=== PATIENT | male | born 1960 | race Caucasian/White ===

== ENCOUNTER 2025-11-13 17:54 | Inpatient (IN) | payer MEDICARE, SELFPAY ==
--- NOTE | 2025-11-13 19:13 | ED.GENADULT ---
HPI - General Adult General Chief complaint: Shortness of Breath/Dyspnea Stated complaint: SOB, Anxiety Time Seen by Provider: 11/13/25 17:58 History of Present Illness HPI narrative: 65-year-old gentleman arrives the EMS with cough and increasing dyspnea. He notes that approximately 3 weeks ago he had rather classic symptoms of an upper respiratory infection with nonproductive cough. Seemingly almost entirely resolved and then worsening over the last week. He notes exertional dyspnea, orthopnea no lower extremity edema. Not complaining of fevers but is feeling significantly worse and he did with the initial viral presentation. No abdominal pain, headache, nausea or vomiting. He does not have a history of cardiac disease does not use inhalers at baseline Related Data Allergies Allergy/AdvReac Type Severity Reaction Status Date / Time ashwagandha (From Cortisolv) Allergy Mild Verified 11/13/25 19:37 banaba leaf extract (From Allergy Mild Verified 11/13/25 19:37 Cortisolv) magnolia bark extract (From Allergy Mild Verified 11/13/25 19:37 Cortisolv) josé root extract (From Allergy Mild Verified 11/13/25 19:37 Cortisolv) Penicillins Allergy Mild Verified 11/13/25 19:37 Phellodendron (From Allergy Mild Verified 11/13/25 19:37 Cortisolv) theanine (From Cortisolv) Allergy Mild Verified 11/13/25 19:37 Review of Systems Review of Systems Narrative: Pertinent positive and negative findings as per HPI Patient History Social History Smoking Status: Former smoker Exam Initial Vital Signs Initial Vital Signs: Vital Signs Temperature 98.3 F 11/13/25 19:36 Pulse Rate 113 H 11/13/25 19:36 Respiratory Rate 16 11/13/25 19:36 Blood Pressure 143/96 H 11/13/25 19:36 Pulse Oximetry 98 11/13/25 19:36 Oxygen Delivery Method Room Air 11/13/25 19:36 General: Healthy appearing, somewhat anxious, able to speak in complete sentences, no respiratory distress HEENT: Moist mucous membranes, normal sclera with reactive pupils, Neck: No JVD, Respiratory: Lungs with crackles to mid lung ren, no significant wheeze no dramatic rhonchi Cardiac: Tachycardic but otherwise Regular rate and rhythm no murmurs no bruits Abdomen: Soft, nontender, no rebound or guarding, no flank pain Skin: Warm and dry, no rashes Neurologic: Grossly neurologically intact with no obvious asymmetries or abnormalities Extremities: No trauma, well perfused, no lower extremity edema Psych: Cooperative, appropriate insight and affect Course Orders Ordered: ED Orders 11/13/25 17:45 Complete Blood Count AUTO DIFF Stat Comprehensive Metabolic Panel Stat NT-proBNP (BNP-Adult 18+) Stat Prothrombin Time INR Stat Troponin I Stat 11/13/25 19:50 XR chest 1V Stat EKG-12 Lead Stat Measure peak expiratory flow STAT RT Consult Eval and Treat STAT 11/13/25 20:07 D Dimer Stat Lactate (Lactic Acid) Stat 11/13/25 22:03 CT angio chest PE protocol Stat Vital Signs Vital signs: Vital Signs - 8 hr 11/13/25 19:36 11/13/25 22:38 11/14/25 00:30 Temperature 98.3 F Pulse Rate 113 H 107 H 111 H Respiratory Rate 16 18 16 Blood Pressure 143/96 H 150/102 H 143/98 H Pulse Oximetry 98 93 98 Oxygen Delivery Method Room Air Room Air Room Air Medical Decision Making Lab Data 11/13/25 17:45 11/13/25 17:45 Labs: Lab Results 11/13/25 11/13/25 Range/Units 17:45 20:07 WBC 11.6 H (4.5-11.0) X10^3/uL RBC 5.69 (4.5-5.9) X10^6/uL Hgb 14.8 (13.5-17.5) g/dL Hct 45.9 (41-53) % MCV 80.7 (80-100) fL MCH 26.0 (26-34) PG MCHC 32.3 (30-36) % RDW 16.4 H (11.6-14.8) % Plt Count 355 (150-400) X10^3/uL Neut % (Auto) 73.6 (50-75) % Lymph % (Auto) 17.8 L (25-40) % [place] % (Auto) 6.5 (3-14) % Eos % (Auto) 1.4 L (2-4) % Baso % (Auto) 0.7 (0-2) % Neut # (Auto) 8500 H (9053-5568) /uL Lymph # (Auto) 2100 (5721-4171) /uL [place] # (Auto) 700 (0-900) /uL Eos # (Auto) 200 (0-450) /uL Baso # (Auto) 100 (0-100) /uL PT 13.3 H (9.4-12.5) SECONDS INR 1.2 (0.9-1.3) D-Dimer 2209 H (<500) ng/ml Sodium 139 (137-145) mmol/L Potassium 4.2 (3.4-5.1) mmol/L Chloride 103 (98-107) mmol/L Carbon Dioxide 21 L (22-32) mmol/L BUN 21 H (9-20) mg/dL Creatinine 1.12 (0.66-1.25) mg/dL Estimated GFR > 60 (>60) mL/min BUN/Creatinine Ratio 18.8 (6-22) Glucose 121 H (70-99) mg/dL Lactate 1.6 (0.7-2.1) mmol/L Calcium 9.1 (8.4-10.2) mg/dL Total Bilirubin 1.1 (0.2-1.3) mg/dL AST 36 (17-59) IU/L ALT 34 (<50) IU/L Alkaline Phosphatase 88 (38-126) U/L Troponin I 0.022 (0.01-0.034) ng/mL NT-Pro-B Natriuret Pep 9530 H (<125) pg/mL Total Protein 8.3 H (6.3-8.2) g/dL Albumin 4.8 (3.5-5.0) g/dL Globulin 3.5 (1.7-4.1) g/dL Albumin/Globulin Ratio 1.4 (1.0-2.8) Imaging Data CT scan - chest: Radiologist's Impression: PROCEDURE: CT ANGIO CHEST PE PROTOCOL INDICATIONS: elevated d dimer TECHNIQUE: After the administration of intravenous contrast, 2 mm thick sections acquired from the pulmonary apices to the posterior costophrenic angles. 3-dimensional maximum intensity projection (MIP) coronal and sagittal reformats were then acquired through the thorax. For radiation dose reduction, the following was used: automated exposure control, adjustment of mA and/or kV according to patient size. COMPARISON: None. FINDINGS: Image quality: Diagnostic. Pulmonary arteries: Pulmonary arteries are normal in size, and demonstrate no intraluminal filling defects to suggest central pulmonary embolism. Lower Neck: No enlarged lymph nodes. Thyroid: No thyroid nodules which require sonographic follow up, per consensus guidelines. Axillae: No enlarged lymph nodes. Chest Wall: Unremarkable. Bones: Unremarkable. Lungs and Pleura: Moderate right greater than left pleural effusions, with associated mild atelectasis. Patchy consolidation in the right lower lobe. Interlobular septal thickening and mosaic attenuation of the lungs, suggestive of interstitial pulmonary edema. Heart: Mild cardiomegaly. Coronary artery calcifications. No pericardial effusion. Thoracic Vessels: No aortic aneurysm. Mediastinum and Sendy: Multiple enlarged mediastinal and hilar lymph nodes, measuring up to 1.6 cm at the precarinal station in short axis (/). Esophagus: No wall thickening. No hiatal hernia. Upper Abdomen: Visualized upper abdomen solid organs and bowel loops appear normal. IMPRESSION: Moderate right greater than left pleural effusions, and interstitial pulmonary edema. Patchy consolidation in the right lower lobe is suggestive of superimposed infectious/inflammatory process. Enlarged mediastinal and hilar lymph nodes, likely reactive. No pulmonary embolism. Dictated by: Arleen Campo M.D. on 11/13/2025 at 23:37 MDM Narrative Medical decision making narrative: CC: Dyspnea Complicating co-morbidities: is dying from cancer and has required significant amount of care with recurrent hospitalizations and large amounts of his time and energy recently. Recent upper respiratory infection Data collected from: patient Social determinants of health that may influence the patients condition: is critically ill and he is caring for her at home Differential considered: Sequential virus, postviral pneumonia, congestive heart failure, pulmonary embolism Exam documented above, pertinent findings include: Able to speak in complete sentences, slightly tachycardic, no murmurs, crackles to mid bases without JVD or lower extremity edema Lab Test results independently reviewed as above. Pertinent findings: CBC shows mild leukocytosis 11.6 without left shift. No anemia Chemistries show proBNP elevated at 9530 Troponin is not elevated Lactic acid is not elevated D-dimer is elevated at greater than 2000 Independently reviewed EKG: Sinus tachycardia at a rate of 115, right bundle branch block. No prior EKGs available for comparison Imaging studies independently reviewed: Chest x-ray shows diffuse interstitial prominence suggestive of mild pulmonary edema and mild left basilar opacities with no obvious pleural effusions noted CT of the chest shows Moderate right greater than left pleural effusions, and interstitial pulmonary edema. Patchy consolidation in the right lower lobe is suggestive of superimposed infectious/inflammatory process. Enlarged mediastinal and hilar lymph nodes, likely reactive. No pulmonary embolism. Consultations: Dr Bruner, senior field engineer agrees with current plan and we will consult as an inpatient Treatments: 40 mg of IV Lasix Discussion: 65-year-old gentleman with upper respiratory infection approximately 3 weeks ago and now progressive exertional dyspnea and orthopnea. He is not having fevers or chills, nausea or vomiting. Workup shows new congestive heart failure based on an elevated BNP. CT scan of the chest shows no evidence of pulmonary embolism but does show interstitial edema and developing pulmonary effusions. EKG shows tachycardia without obvious ischemic changes. Troponin is not elevated today. Findings reviewed with patient along with recommendations for hospitalization to facilitate IV diuresis, cardiology consultation, echocardiogram. He is amenable to this. Discussed his care with Dr. Richey who will consult tomorrow. We will review his care with the hospitalist service for admission for new congestive heart failure. Discharge Plan Departure Patient Disposition: Admitted as Observation Clinical Impression: Acute CHF (congestive heart failure) Qualifiers: Heart failure type: unspecified Qualified Code(s): I50.9 - Heart failure, unspecified
[2025-11-13 19:36] VITALS: BP 143/96; PULSE 113; RESP 16; TEMP 36.8; O2SAT 98; BMI 29.2
--- NOTE | 2025-11-13 19:50 | EKG_ITS ---
[facility] [id number] [place] [id number] Test Date: 2025-11-13 Pat Name: Antoine Prince Department: Room: Gender: Male Hvac Technician: ADRIENNE : 1960 Requested By: Order Number: [id number] Reading MD: Dionte Estevez MD Measurements Intervals [place] Rate: 115 P: 60 SD: 126 QRS: 176 QRSD: 136 T: 45 QT: 372 QTc: 514 Interpretive Statements Sinus tachycardia with occasional premature ventricular complexes Possible Left atrial enlargement Right bundle branch block Septal infarct , age undetermined NO PRIOR TRACING Electronically Signed On 11-14-2025 6:45:47 PST by Dionte Estevez MD
--- NOTE | 2025-11-13 19:50 | DI.RAD.S_ITS ---
PROCEDURE: XR CHEST 1V INDICATIONS: Shortness of breath TECHNIQUE: One view of the chest was acquired. COMPARISON: None. FINDINGS: Surgical changes and devices: None. Lungs and pleura: Diffuse interstitial prominence suggestive of mild pulmonary edema. Mild left basilar opacities, favoring atelectasis. No substantial pleural effusion or pneumothorax. Mediastinum: Mediastinal contours appear normal. Heart size is normal. Bones and chest wall: No suspicious bony lesions. Overlying soft tissues appear unremarkable. IMPRESSION: Diffuse interstitial prominence suggestive of mild pulmonary edema. Mild left basilar opacities, favoring atelectasis. Dictated by: Arleen Campo M.D. on 11/13/2025 at 21:22 Approved by: Arleen Campo M.D. on 11/13/2025 at 21:24
[2025-11-13 20:00] LABS: Add Manual Diff / Slide Review NO; Hematocrit 45.9 % (41-53); Hemoglobin 14.8 g/dL (13.5-17.5); Lymphocytes Absolute Auto 2100 /uL (1100-4500); Mean Corpuscular HGB Conc 32.3 % (30-36); Mean Corpuscular Hemoglobin 26.0 PG (26-34); Mean Corpuscular Volume 80.7 fL (80-100); Platelet Count 355 X10^3/uL (150-400)
[2025-11-13 20:02] LABS: INR 1.2 (0.9-1.3); Prothrombin Time 13.3 SECONDS (9.4-12.5)
[2025-11-13 20:06] LABS: Alanine Aminotransferase 34 IU/L (<50); Albumin 4.8 g/dL (3.5-5.0); Albumin Globulin Ratio 1.4 (1.0-2.8); Alkaline Phosphatase 88 U/L (38-126); Blood Urea Nitrogen 21 mg/dL (9-20); Calcium 9.1 mg/dL (8.4-10.2); Carbon Dioxide 21 mmol/L (22-32); Chloride 103 mmol/L (98-107); Estimated Glomerular Filt Rate > 60 mL/min (>60); Globulin 3.5 g/dL (1.7-4.1); Glucose 121 mg/dL (70-99); Potassium 4.2 mmol/L (3.4-5.1); Sodium 139 mmol/L (137-145); Total Protein 8.3 g/dL (6.3-8.2)
[2025-11-13 20:16] LABS: HEMOLYSIS < 15 (0-50); NT-proBNP (BNP-Adult 18+) 9530 pg/mL (<125)
[2025-11-13 20:17] LABS: Troponin I 0.022 ng/mL (0.01-0.034)
[2025-11-13 20:30] LABS: Lactate (Lactic Acid) 1.6 mmol/L (0.7-2.1)
--- NOTE | 2025-11-13 22:03 | DI.CT.S_ITS ---
PROCEDURE: CT ANGIO CHEST PE PROTOCOL INDICATIONS: elevated d dimer TECHNIQUE: After the administration of intravenous contrast, 2 mm thick sections acquired from the pulmonary apices to the posterior costophrenic angles. 3-dimensional maximum intensity projection (MIP) coronal and sagittal reformats were then acquired through the thorax. For radiation dose reduction, the following was used: automated exposure control, adjustment of mA and/or kV according to patient size. COMPARISON: None. FINDINGS: Image quality: Diagnostic. Pulmonary arteries: Pulmonary arteries are normal in size, and demonstrate no intraluminal filling defects to suggest central pulmonary embolism. Lower Neck: No enlarged lymph nodes. Thyroid: No thyroid nodules which require sonographic follow up, per consensus guidelines. Axillae: No enlarged lymph nodes. Chest Wall: Unremarkable. Bones: Unremarkable. Lungs and Pleura: Moderate right greater than left pleural effusions, with associated mild atelectasis. Patchy consolidation in the right lower lobe. Interlobular septal thickening and mosaic attenuation of the lungs, suggestive of interstitial pulmonary edema. Heart: Mild cardiomegaly. Coronary artery calcifications. No pericardial effusion. Thoracic Vessels: No aortic aneurysm. Mediastinum and Sendy: Multiple enlarged mediastinal and hilar lymph nodes, measuring up to 1.6 cm at the precarinal station in short axis (4/57). Esophagus: No wall thickening. No hiatal hernia. Upper Abdomen: Visualized upper abdomen solid organs and bowel loops appear normal. IMPRESSION: Moderate right greater than left pleural effusions, and interstitial pulmonary edema. Patchy consolidation in the right lower lobe is suggestive of superimposed infectious/inflammatory process. Enlarged mediastinal and hilar lymph nodes, likely reactive. No pulmonary embolism. Dictated by: Arleen Campo M.D. on 11/13/2025 at 23:37 Approved by: Arleen Campo M.D. on 11/13/2025 at 23:45
[2025-11-13 22:38] VITALS: BP 150/102; PULSE 107; RESP 18; O2SAT 93
[2025-11-14 00:30] VITALS: BP 143/98; PULSE 111; RESP 16; O2SAT 98
[2025-11-14] MEDS: FUROSEMIDE 40 MG/4 ML VIAL IV ×2 (01:03→11:44)
--- NOTE | 2025-11-14 03:15 | DI.ECHO.S_ITS ---
[facility]+ [facility] : : [address] : : [place] : : [id number] : : Phone: [phone] Echocardiogram Report + + :Name: TARIQ CASTORENA Study Date: 11/14/2025 Height: 65 in : [id number] ReadingLocation: Weight: 176 lb : : Gender: Male BSA: 1.9 m2 : :: 1960 Age: 65 yrs BP: 123/73 mmHg: :Reason For Study: CHF : :Ordering Physician: LIVE, : :LIEN Performed By: Souleymane Bush : :Referring: LIEN MANCINI : + + Interpretation Summary - The left ventricular contractility is severely compromised. Estimated ejection fraction is approximately 25 to 30%. There is severe hypokinesis of the anteroapical and lateral segments. No LVH. Unable to comment on diastolic function. - The right ventricular contractility is normal. - The left atrium and left ventricle are dilated. The right atrium and right ventricle are of normal size. - Severe mitral regurgitation. - Mild to moderate aortic valvular stenosis with peak velocity of 2.4 m/s with mean gradient of 15 mmHg. Dimensionless index of 0.42. Mild aortic insufficiency. - Moderate tricuspid regurgitation with estimated pulmonary systolic artery pressures of 60 mmHg. - No obvious intracardiac shunts. - No obvious intracardiac masses nor thrombi. - No hemodynamically significant pericardial effusion. - Elevated right-sided filling pressures. Conclusion: Severely compromised left ventricular systolic function with severe mitral regurgitation. Procedure: A two-dimensional transthoracic echocardiogram with color flow and Doppler was performed. The study quality was technically adequate. There is no prior echocardiogram noted for this patient. The heart rate ranged between 100-110 bpm during the study. Left Ventricle: The left ventricle is mildly dilated. There is normal left ventricular wall thickness. The ejection fraction is estimated to be 25-30%. There are regional wall motion abnormalities as specified. Diastolic function is indeterminate. Right Ventricle: The right ventricle is normal in size and function. Atria: The left atrium is mildly dilated. Right atrial size is normal. There is no Doppler evidence for an interatrial shunt. Mitral Valve: The mitral valve leaflets appear to open well. There is no mitral valve stenosis. There is severe mitral regurgitation. Aortic Valve: The aortic valve is trileaflet. The aortic valve is moderately calcified. There is mild to moderate aortic stenosis. The calculated aortic valve area is 1.3 cm2. The peak aortic velocity is 2.4 m/sec. The aortic valve mean gradient is 14.7 mmHg. sev ratio: 0.42. There is mild aortic regurgitation. Tricuspid Valve: The tricuspid valve leaflets are thin and pliable. There is moderate tricuspid regurgitation. The right ventricular systolic pressure is estimated to be at least 60 mmHg based on an estimated right atrial pressure of 15 mm Hg. Pulmonic Valve: The pulmonic valve is not well seen, but is grossly normal. There is trace pulmonic regurgitation. Great Vessels: There is aortic root sclerosis/calcification. The aortic root is normal size. The ascending aorta is normal in size. The aortic arch could not be visualized. The pulmonary artery is normal size. The IVC is dilated (diameter is greater than 2.1 cm) and it collapses less than 50% with a sniff. This suggests a high right atrial pressure of 15 mm Hg. Pericardium/ Pleura There is no pericardial effusion. Pleural effusion noted from PLAX view. MMode/2D Measurements & Calculations LVIDd: 6.1 cm LVOT diam: 2.1 cm LVIDs: 5.0 cm Ao root diam: 2.9 cm FS: 17.7 % asc Aorta Diam: 3.0 cm EPSS: 1.4 cm IVSd: 0.90 cm LVPWd: 0.94 cm LV fitzpatrick. diameter/BSA (cm/m^2): 3.3 LV sys. diameter/BSA (cm/m^2): 2.7 LA A2 area: 24.1 cm2 RA long axis: 5.0 cm LA A4 area: 20.1 cm2 RA area: 16.8 cm2 LA length (vol): 5.9 cm RA vol: 48.0 ml LA vol: 69.3 ml RA : 25.6 ml/m2 LA vol index: 37.0 ml/m2 IVC diam: 2.4 cm RVD1 (basal): 3.8 cm RVD2 (mid): 3.3 cm TAPSE: 1.7 cm Doppler Measurements & Calculations Ao V2 max: 241.5 cm/sec LVOT Max Jarod: 90.0 cm/sec Ao V2 mean: 183.7 cm/sec LV V1 max P.2 mmHg Ao max P.3 mmHg LV V1 VTI: 13.8 cm Ao mean P.7 mmHg STELLA(I,D): 1.5 cm2 Ao V2 VTI: 32.5 cm STELLA(V,D): 1.3 cm2 sev ratio: 0.42 STELLA indexed to BSA (cm^2/m^2): 0.81 AI P1/2t: 505.6 msec AI dec slope: 181.1 cm/sec2 MV E max jarod: 125.5 cm/sec TR max jarod: 337.2 cm/sec Med Peak E' Jarod: 4.6 cm/sec TR max P.5 mmHg E/E' med: 27.6 PA V2 max: 85.8 cm/sec Lat Peak E' Jarod: 4.9 cm/sec PA V2 mean: 51.4 cm/sec E/E' lat: 25.5 PA mean P.3 mmHg E/e' average: 26.5 PA pr(Accel): 55.9 mmHg MV dec time: 0.20 sec MR VTI: 149.7 cm SV(LVOT): 49.2 ml Qp/Qs (V,Ao): 1.0/6.3 Qp/Qs (V,LVOT): 1.0/1.3 Reading Physician:MILAN
[2025-11-14 04:03] VITALS: BMI 29.2
--- NOTE | 2025-11-14 05:48 | P.HP_ITS ---
History of Present Illness History of Present Illness Chief complaint: SOB, Anxiety Narrative: 65 years old male with recent upper respiratory infection presents to the ER with increased shortness of breath and dry cough in the last 3 weeks getting progressively worse. He also reports some exertional dyspnea, orthopnea but no PND or swelling of the legs. Denies any cardiac workup in the past. Denies any fever, chest pain, palpitations, nausea, vomiting, abdominal pain, diarrhea or dysuria. His is dying from cancer and requiring significant effort with current hospitalization. Laboratory shows WBC 11.6, hemoglobin 14.8, INR 1.2, D-dimer 2209, sodium 139, creatinine 1.12, glucose 121, lactate 1.6, LFT normal, troponin negative, BNP 9530. EKG shows sinus tachycardia with RBBB. Chest x- ray shows mild pulmonary edema. CT angiogram shows moderate right greater than left pleural effusions and interstitial pulmonary edema. Patchy consolidation in the right lung suggestive of superimposed infectious phonatory process. Enlarged mediastinal and hilar lymph nodes likely reactive. No PE. PFSH Social History Smoking Status: Former smoker Meds Home Medications and Allergies Allergies Allergy/AdvReac Type Severity Reaction Status Date / Time ashwagandha (From Cortisolv) Allergy Mild Verified 11/13/25 19:37 banaba leaf extract (From Allergy Mild Verified 11/13/25 19:37 Cortisolv) magnolia bark extract (From Allergy Mild Verified 11/13/25 19:37 Cortisolv) josé root extract (From Allergy Mild Verified 11/13/25 19:37 Cortisolv) Penicillins Allergy Mild Verified 11/13/25 19:37 Phellodendron (From Allergy Mild Verified 11/13/25 19:37 Cortisolv) theanine (From Cortisolv) Allergy Mild Verified 11/13/25 19:37 Review of Systems Review of Systems ROS: Yes All systems reviewed with the patient and are negative except as otherwise documented Constitutional Constitutional: Reports as per HPI and Reports system reviewed and no additional complaints, except as documented Eyes Eyes: Reports as per HPI and Reports system reviewed and no additional complaints, except as documented ENT Ears, Nose, Mouth, and Throat: Yes as per HPI and Yes system reviewed and no additional complaints, except as documented Cardiovascular Cardiovascular: Reports system reviewed and no additional complaints, except as documented Respiratory Respiratory: Reports system reviewed and no additional complaints, except as documented Gastrointestinal Gastrointestinal: Reports system reviewed and no additional complaints, except as documented Genitourinary Genitourinary: Reports system reviewed and no additional complaints, except as documented Musculoskeletal Musculoskeletal: Reports system reviewed and no additional complaints, except as documented, Reports abnormal gait and Reports numbness Neurologic Neurologic: Reports system reviewed and no additional complaints, except as documented, Reports abnormal gait, Reports confusion and Reports numbness Psychiatric Psychiatric: Reports system reviewed and no additional complaints, except as documented and Reports confusion Exam Vital Signs (past 8 hours): - 11/13/25 22:38 11/14/25 00:30 Pulse Rate 107 H 111 H Respiratory Rate 18 16 Blood Pressure 150/102 H 143/98 H Pulse Oximetry 93 98 Oxygen Delivery Method Room Air Room Air Oxygen Delivery Method Room Air Const General: cooperative, comfortable and well developed Orientation: alert and oriented x3 HENMT Head: normal to inspection, normocephalic and atraumatic Face and sinus: normal facial exam Mouth: oral mucosae normal and moist mucous membranes Throat: posterior oropharynx normal Eyes General: appearance normal, both eyes and all related structures Pupils: PERRL EOM: EOM intact bilaterally Neck Neck: normal visual inspection and full ROM Chest Chest: normal inspection of the chest Resp Effort & Inspection: normal respiratory effort and able to speak in complete sentences Auscultation: clear to auscultation bilaterally Cardio Palpation: normal PMI Rate: regular rate Rhythm: regular rhythm Heart Sounds: S1 normal and S2 normal GI Inspection: normal to inspection Palpation: soft and no hepatosplenomegaly Auscultation: normal bowel sounds Skin General: no rashes or lesions noted Lesions: no lesions Rashes: no rashes Trauma: no lacerations or abrasions Neuro General: patient alert, patient awake, patient oriented x3 and no focal motor deficits Cranial Nerves: CN's II-XI intact bilaterally Cognition: normal cognition Speech: speech normal Gait: normal gait Motor: muscle tone normal throughout Sensory Exam: no sensory deficits noted Extrem General: full ROM and no calf tenderness Psych Appearance: grossly normal Mental Status: mental status grossly normal Speech and Movement: speech and movement normal Objective Labs 11/13/25 17:45 11/13/25 17:45 Labs: Laboratory Results - last 24 hr 11/13/25 11/13/25 17:45 20:07 WBC 11.6 H RBC 5.69 Hgb 14.8 Hct 45.9 MCV 80.7 MCH 26.0 MCHC 32.3 RDW 16.4 H Plt Count 355 Neut % (Auto) 73.6 Lymph % (Auto) 17.8 L [place] % (Auto) 6.5 Eos % (Auto) 1.4 L Baso % (Auto) 0.7 Neut # (Auto) 8500 H Lymph # (Auto) 2100 [place] # (Auto) 700 Eos # (Auto) 200 Baso # (Auto) 100 PT 13.3 H INR 1.2 D-Dimer 2209 H Sodium 139 Potassium 4.2 Chloride 103 Carbon Dioxide 21 L BUN 21 H Creatinine 1.12 Estimated GFR > 60 BUN/Creatinine Ratio 18.8 Glucose 121 H Lactate 1.6 Calcium 9.1 Total Bilirubin 1.1 AST 36 ALT 34 Alkaline Phosphatase 88 Troponin I 0.022 NT-Pro-B Natriuret Pep 9530 H Total Protein 8.3 H Albumin 4.8 Globulin 3.5 Albumin/Globulin Ratio 1.4 Assessment & Plan Assessment & Plan narrative: Acute diastolic heart failure -Monitor I and O; daily standing weight; -diuresis with Lasix as BP can tolerate. -check BNP and repeat in 48 hours; low sodium diet -Monitor effectiveness of diuresis. Monitor renal function. -keep potassium> 4 and magnesium> 2 -Telemetry monitoring -Echo -Cardiology consult -Supplemental O2 as needed, goal SpO2> 90% I performed this consultation using real-time telehealth tools, including a live video connection between my location and the patient's location. As the provider for this telehealth service, I attest that I introduced myself to the patient, provided my credentials, disclosed my location, and determined that, based on a review of the patients chart and/or a discussion with members of the patient's treatment team, telemedicine via a real-time, two-way, interactive audio and video platform is an appropriate and effective means of providing this service. The patient and I mutually agree that this visit is appropriate for telemedicine as well. Disclaimer Note: To increase efficiency, your provider may have prepared this document using voice recognition technology. In that case, if a word or phrase is confusing, or does not make sense, this is likely due to a recognition error within the program which was not discovered during the provider?s review. If you believe an error has occurred, please notify your provider?s office at your earliest convenience, so we can correct any mistakes. Time-Based Coding :: 50 min spent with patient and on the chart (including review of chart, obtaining history, exam, reviewing outside data, placing orders, documenting exam and treatment plan, and counseling patient) on 11/14/2025. Quality VTE Deep Vein Thrombosis/Pulmonary Embolism Present on Admission: No MIPS - Admit I confirm the patient?s Advance Care Plan is present, Code status is documented, Surrogate decision maker is in patient?s record [If Yes, STOP here]: Yes MIPS - Meds 'Current medications' to include all prescriptions, [id number] products, herbals, cannabis/cannabidiol products, and vitamin/mineral/dietary (nutritional) supplements. I have utilized all available resources to obtain, update, or review the patient?s current medications. [If Yes, STOP here]: Yes
[2025-11-14 06:52] VITALS: BP 123/73; PULSE 94; RESP 16; O2SAT 96
[2025-11-14 07:13] LABS: Alanine Aminotransferase 30 IU/L (<50); Albumin 4.4 g/dL (3.5-5.0); Albumin Globulin Ratio 1.4 (1.0-2.8); Alkaline Phosphatase 73 U/L (38-126); Blood Urea Nitrogen 20 mg/dL (9-20); Calcium 8.8 mg/dL (8.4-10.2); Carbon Dioxide 22 mmol/L (22-32); Chloride 106 mmol/L (98-107); Estimated Glomerular Filt Rate > 60 mL/min (>60); Globulin 3.1 g/dL (1.7-4.1); Glucose 98 mg/dL (70-99); HEMOLYSIS 16 (0-50); Magnesium 2.1 mg/dL (1.6-2.3); Potassium 3.9 mmol/L (3.4-5.1); Sodium 139 mmol/L (137-145); Total Protein 7.5 g/dL (6.3-8.2)
[2025-11-14 07:16] LABS: Cholesterol 149 mg/dL (140-199); HDL Cholesterol 40 mg/dL (40-60); Triglycerides 130 mg/dL (35-150)
--- NOTE | 2025-11-14 08:26 | PM.HP.1 ---
History of Present Illness History of Present Illness Chief complaint: SOB, Anxiety Narrative: From Night doctor: 65 years old male with recent upper respiratory infection presents to the ER with increased shortness of breath and dry cough in the last 3 weeks getting progressively worse. He also reports some exertional dyspnea, orthopnea but no PND or swelling of the legs. Denies any cardiac workup in the past. Denies any fever, chest pain, palpitations, nausea, vomiting, abdominal pain, diarrhea or dysuria. His is dying from cancer and requiring significant effort with current hospitalization. Laboratory shows WBC 11.6, hemoglobin 14.8, INR 1.2, D-dimer 2209, sodium 139, creatinine 1.12, glucose 121, lactate 1.6, LFT normal, troponin negative, BNP 9530. EKG shows sinus tachycardia with RBBB. Chest x-ray shows mild pulmonary edema. CT angiogram shows moderate right greater than left pleural effusions and interstitial pulmonary edema. Patchy consolidation in the right lung suggestive of superimposed infectious phonatory process. Enlarged mediastinal and hilar lymph nodes likely reactive. No PE. S: Dyspnea has resolved overnight, no leg edema or orthopnea. No chest pain or known cardiac problems. ROS: All else reviewed and otherwise unremarkable except as noted in the history and physical. O: T 98.3?, BP 123/73, pulse 94, respiration 16, SpO2 96% room air. NAD, alert and oriented, fluent speech, calm. Normocephalic skull, EOMI, anicteric sclera, symmetric pupils. Oropharynx unremarkable, no droop. Neck supple, midline trachea, no adenopathy. Lungs clear, normal rate and effort. Heart regular, no murmur gallop or rub. Abdomen is soft, non distended and non tender. Extremities are free of edema. Skin is free of rash or lesions. Joints are not swollen or deformed. Judgment appears to be normal. ECG: Intervals [place] Rate: 115 P: 60 [place]: 126 QRS: 176 QRSD: 136 T: 45 QT: 372 QTc: 514 Interpretive Statements Sinus tachycardia with occasional premature ventricular complexes Possible Left atrial enlargement Right bundle branch block Septal infarct , age undetermined NO PRIOR TRACING IMAGING: Chest CTA: Moderate right greater than left pleural effusions, and interstitial pulmonary edema. Patchy consolidation in the right lower lobe is suggestive of superimposed infectious/inflammatory process. Enlarged mediastinal and hilar lymph nodes, likely reactive. No pulmonary embolism. Chest x-ray: Diffuse interstitial prominence suggestive of mild pulmonary edema. Mild left basilar opacities, favoring atelectasis. A/P: 1. New new heart failure with pulmonary edema, active. 2. RBBB PLAN: -continue diuresis, 2D echo to assess LV function. -cardiology consult -trend troponins Anticipate 2 [place] in the hospital, supports inpatient status. Full resuscitation. [facility] Social History household members: spouse Smoking Status: Former smoker Meds Home Medications and Allergies Home Medications ?Medication ?Instructions ?Recorded ?Confirmed ?Type aspirin 81 mg capsule 81 mg PO DAILY #30 caps 11/14/25 Rx atorvastatin 40 mg tablet 40 mg PO BEDTIME #30 tabs 11/14/25 Rx lisinopril 5 mg tablet 5 mg PO DAILY #30 tabs 11/14/25 Rx metoprolol succinate 25 mg capsule 25 mg PO DAILY #30 ea 11/14/25 Rx sprinkle, ext. release 24 hr spironolactone 25 mg tablet 25 mg PO DAILY #30 tabs 11/14/25 Rx Allergies Allergy/AdvReac Type Severity Reaction Status Date / Time ashwagandha (From Cortisolv) Allergy Mild Verified 11/13/25 19:37 banaba leaf extract (From Allergy Mild Verified 11/13/25 19:37 Cortisolv) magnolia bark extract (From Allergy Mild Verified 11/13/25 19:37 Cortisolv) josé root extract (From Allergy Mild Verified 11/13/25 19:37 Cortisolv) Penicillins Allergy Mild Verified 11/13/25 19:37 Phellodendron (From Allergy Mild Verified 11/13/25 19:37 Cortisolv) theanine (From Cortisolv) Allergy Mild Verified 11/13/25 19:37 Exam Vital Signs (past 8 hours): - 11/14/25 00:30 11/14/25 06:52 Pulse Rate 111 H 94 H Respiratory Rate 16 16 Blood Pressure 143/98 H 123/73 Pulse Oximetry 98 96 Oxygen Delivery Method Room Air Room Air Oxygen Delivery Method Room Air Objective Labs 11/13/25 17:45 11/14/25 06:44 Labs: Laboratory Results - last 24 hr 11/13/25 11/13/25 11/14/25 17:45 20:07 06:44 WBC 11.6 H RBC 5.69 Hgb 14.8 Hct 45.9 MCV 80.7 MCH 26.0 MCHC 32.3 RDW 16.4 H Plt Count 355 Neut % (Auto) 73.6 Lymph % (Auto) 17.8 L [place] % (Auto) 6.5 Eos % (Auto) 1.4 L Baso % (Auto) 0.7 Neut # (Auto) 8500 H Lymph # (Auto) 2100 [place] # (Auto) 700 Eos # (Auto) 200 Baso # (Auto) 100 PT 13.3 H INR 1.2 D-Dimer 2209 H Sodium 139 139 Potassium 4.2 3.9 Chloride 103 106 Carbon Dioxide 21 L 22 BUN 21 H 20 Creatinine 1.12 0.95 Estimated GFR > 60 > 60 BUN/Creatinine Ratio 18.8 21.1 Glucose 121 H 98 Lactate 1.6 Calcium 9.1 8.8 Magnesium 2.1 Total Bilirubin 1.1 1.3 AST 36 32 ALT 34 30 Alkaline Phosphatase 88 73 Troponin I 0.022 NT-Pro-B Natriuret Pep 9530 H Total Protein 8.3 H 7.5 Albumin 4.8 4.4 Globulin 3.5 3.1 Albumin/Globulin Ratio 1.4 1.4 Triglycerides 130 Cholesterol 149 LDL Cholesterol, Calc 83 HDL Cholesterol 40 Assessment & Plan Time-Based Coding :: 35 min spent with patient and on the chart (including review of chart, obtaining history, exam, reviewing outside data, placing orders, documenting exam and treatment plan, and counseling patient) on 11/14. Quality VTE Deep Vein Thrombosis/Pulmonary Embolism Present on Admission: No MIPS - Admit The patient?s Advance Care plan is not present because I confirmed today that the patient does not wish or was not able to name a surrogate decision maker or provide an Advance Care Plan.: Yes MIPS - Meds 'Current medications' to include all prescriptions, [id number] products, herbals, cannabis/cannabidiol products, and vitamin/mineral/dietary (nutritional) supplements. I have utilized all available resources to obtain, update, or review the patient?s current medications. [If Yes, STOP here]: Yes
--- NOTE | 2025-11-14 10:29 | PT.IIE ---
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 Level (Other details ) Social History Household Members spouse Living Arrangements House Number of Floors ( Two Floors Floors) Number of Stairs To 2 steps to enter, 10 steps to second floor with landing Enter/Railing? after 5 Home Environment High Toilet,Walk in Shower Home Equipment Grab Bars Near Toilet,Grab Bars In Shower Additional Social Son has just taken family leave to assist with care. History Comment M2 PT-IP Current Condition Start: 11/14/25 11:45 Freq: Status: Active Protocol: Document 11/14/25 11:46 NW (Rec: 11/14/25 11:56 NW [id number]) Physical Therapy Current Condition Current Condition Evaluation Date 11/14/25 Treatment Diagnosis SOB, Acute CHF Onset Date 11/13/25 M3 PT-IP Subjective Start: 11/14/25 11:45 Freq: Status: Active Protocol: Document 11/14/25 11:46 NW (Rec: 11/14/25 11:56 NW [id number]) Subjective Physical Therapy Visit Type Type Initial Evaluation Visit Start Time 10:29 Visit Stop Time 10:45 Number of COMMERCIAL INST[employer]ER Visits 0 Physical Therapy Visit Comments Patient Comments Pt needs to go home to assist with caring for spouse. Patient Goals Go home. M4 PT-IP Mobility and Gait Start: 11/14/25 11:45 Freq: Status: Active Protocol: Document 11/14/25 11:46 NW (Rec: 11/14/25 11:56 NW [id number]) PT-Bed Mobility Assessment Supine to Sit Supine to Sit Independent Sit to Supine Sit to Supine Independent Scooting Scooting to Edge of Independent Bed PT-Transfer Assessment Sit to and From Stand Sit to and from Independent Stand Transfers Transfer Destination Bed,Chair Transfer Technique Stand Step Pivot Transfer Ability Level of Assist Independent Comments Mobility Comments Adequate power production with no loss of balance upon stance. Gait Assessment Gait Gait Assistance Standby Assistance Required: Distance (Feet) 200 Assistive Devices Assistive Device Gait Belt Gait Deviations General Gait Pattern Within Normal Limits Comments Gait Comments Pt is highly distracted with ambulation around ED. No loss of balance no any signs of exertion. Stair Climbing Assessment Comments Stair Climbing DNT secondary to pt location. Not concerned as pt Comments performed yesterday and does not show any signs of exertion with STS nor ambulation. PT-Balance Assessment Sitting Balance and Reactions Static Sitting Normal Balance Ability Dynamic Sitting Normal Balance Ability Standing Balance and Reactions Static Standing Normal Balance Ability Dynamic Standing Good Balance Ability Functional Assessments Functional Tests 5 Times Sit to Stand < 12 sec M5 PT-IP Objective Assessments Start: 11/14/25 11:45 Freq: Status: Active Protocol: Document 11/14/25 11:46 NW (Rec: 11/14/25 11:56 NW [id number]) Orientation Orientation/Cognition Level of Alertness Alert Orientation Name,Age,Birthday,Month,Date,Year,Day of Week,Place, Situation Gross Range of Motion Upper Extremity ROM Assessment Within Functional Limits Lower Extremity ROM Assessment Within Functional Limits Strength Upper Extremity Strength Assessment Within Functional Limits Lower Extremity Strength Assessment Within Functional Limits Coordination Assessment Gross Coordination Gross Coordination WNL Sensation Assessment Sensation Gross Sensation WNL Muscle Tone Muscle Tone WNL Yes M7 PT-IP Assessment and Plan Start: 11/14/25 11:45 Freq: Status: Active Protocol: Document 11/14/25 11:46 NW (Rec: 11/14/25 11:56 NW [id number]) PT Summary Assessment and Plan Potential Rehabilitation Excellent Potential Status of Condition Stable at Evaluation Summary Progress Towards Safe For Discharge Goals Assessment Summary Antoine is a 65 yr old male admitted secondary to acute CHF with SOB. 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 Pt is independent with all functional mobility and demonstrates no signs of exertion with near normal vitals upon re-assessment. Pt is tachy with HR in 110s, but has been drinking a considerable amount of caffeine. Pt needs no further PT interventions at this time and is being discharged from care. Frequency of Treatment Frequency Of Discharge Treatment Weight Bearing Status Weight Bearing Weight Bear as Tolerated Status Discharge Recommendations PT Discharge Home Recommendations Other Discharge focus on sleep and stress management with MD/therapy Recommendations support. Transportation Needs Private Vehicle at Discharge - PT assist 1
[2025-11-14 10:35] VITALS: BP 131/92; PULSE 114; RESP 20; O2SAT 95
--- NOTE | 2025-11-14 11:43 | PM.DS.1 ---
History of Present Illness History of Present Illness Chief complaint: SOB, Anxiety Narrative: From Night doctor: 65 years old male with recent upper respiratory infection presents to the ER with increased shortness of breath and dry cough in the last 3 weeks getting progressively worse. He also reports some exertional dyspnea, orthopnea but no PND or swelling of the legs. Denies any cardiac workup in the past. Denies any fever, chest pain, palpitations, nausea, vomiting, abdominal pain, diarrhea or dysuria. His is dying from cancer and requiring significant effort with current hospitalization. Laboratory shows WBC 11.6, hemoglobin 14.8, INR 1.2, D-dimer 2209, sodium 139, creatinine 1.12, glucose 121, lactate 1.6, LFT normal, troponin negative, BNP 9530. EKG shows sinus tachycardia with RBBB. Chest x-ray shows mild pulmonary edema. CT angiogram shows moderate right greater than left pleural effusions and interstitial pulmonary edema. Patchy consolidation in the right lung suggestive of superimposed infectious phonatory process. Enlarged mediastinal and hilar lymph nodes likely reactive. No PE. HOSPITAL COURSE: He was admitted, and he was diuresed. He improved dramatically. On the morning of discharge he was on willing to stay at the hospital and monitor, and not interested in wearing a life vest. He also declined follow up with [facility] and apparently it was very [place] to [facility] in [place]. O: T 98.3?, BP 123/73, pulse 94, respiration 16, SpO2 96% room air. DISCHARGE EXAM: NAD, alert and oriented. Fluent speech. Lungs are clear, normal rate and effort. Heart is regular, no murmur gallop or rub. Abdomen is soft, non distended. Extremities are free of edema. ECG: Intervals [place] Rate: 115 P: 60 [place]: 126 QRS: 176 QRSD: 136 T: 45 QT: 372 QTc: 514 Interpretive Statements Sinus tachycardia with occasional premature ventricular complexes Possible Left atrial enlargement Right bundle branch block Septal infarct , age undetermined NO PRIOR TRACING IMAGING: Chest CTA: Moderate right greater than left pleural effusions, and interstitial pulmonary edema. Patchy consolidation in the right lower lobe is suggestive of superimposed infectious/inflammatory process. Enlarged mediastinal and hilar lymph nodes, likely reactive. No pulmonary embolism. Chest x-ray: Diffuse interstitial prominence suggestive of mild pulmonary edema. Mild left basilar opacities, favoring atelectasis. ECHO: Interpretation Summary - The left ventricular contractility is severely compromised. Estimated ejection fraction is approximately 25 to 30%. There is severe hypokinesis of the anteroapical and lateral segments. No LVH. Unable to comment on diastolic function. - The right ventricular contractility is normal. - The left atrium and left ventricle are dilated. The right atrium and right ventricle are of normal size. - Severe mitral regurgitation. - Mild to moderate aortic valvular stenosis with peak velocity of 2.4 m/s with mean gradient of 15 mmHg. Dimensionless index of 0.42. Mild aortic insufficiency. - Moderate tricuspid regurgitation with estimated pulmonary systolic artery pressures of 60 mmHg. - No obvious intracardiac shunts. - No obvious intracardiac masses nor thrombi. - No hemodynamically significant pericardial effusion. - Elevated right-sided filling pressures. Conclusion: Severely compromised left ventricular systolic function with severe mitral regurgitation. A/P: 1. New new heart failure with pulmonary edema, active. 2. RBBB, Active. 3. Severe mitral regurgitation. PLAN: The patient was unwilling to stay in the hospital but does agree to follow up with [facility]. He does not want to see any candy feeder other than [facility]. He will go over to the [facility] office in [place] this afternoon. He agrees to take cardiac medications which he will be prescribed. He declines any further discussion regarding a life vest and the possibility of cardiac arrest with his EF was explained to him. He had an unexpectedly rapid recovery allowing for discharge after 1 midnight. [Y], the patient has documentation of a left ventricle ejection fracture less than or equal to 40%, or moderately or severely reduced left ventricle systolic function. [N], the patient has a history of heart transplant or left ventricular assist device (LVAD). [Y, the patient was prescribed an ALO inhibitor at discharge or is already being taken. [Y], the patient was prescribed Metoprolol succinate, bisoprolol, or carvedilol at discharge. Discharge Providers Provider Date of admission: 11/14/25 01:15 Discharge Date: 11/14/25 Primary care physician: Josh Russell MD Consults: 11/14/25 00:53 Consult to Cardiology Stat Comment: Consulting Provider: Miles Bruner Reason for consultation: new acute chf Has provider been notified: Yes 11/14/25 03:14 Consult to Discharge Planning Routine Comment: Consult to Occupational Therapy Evaluate & Treat Comment: Physician Instructions: Evaluate and treat Consult to Physical Therapy Evaluate & Treat Comment: Physician Instructions: Evaluate and Treat Discharge provider: Thomas Waddell MD Exam Vital Signs (past 8 hours): - 11/14/25 06:52 11/14/25 10:35 Pulse Rate 94 H 114 H Respiratory Rate 16 20 Blood Pressure 123/73 131/92 H Pulse Oximetry 96 95 Oxygen Delivery Method Room Air Room Air Oxygen Delivery Method Room Air Objective Labs 11/13/25 17:45 11/14/25 06:44 Labs: Laboratory Results - last 24 hr 11/13/25 11/13/25 11/14/25 17:45 20:07 06:44 WBC 11.6 H RBC 5.69 Hgb 14.8 Hct 45.9 MCV 80.7 MCH 26.0 MCHC 32.3 RDW 16.4 H Plt Count 355 Neut % (Auto) 73.6 Lymph % (Auto) 17.8 L [place] % (Auto) 6.5 Eos % (Auto) 1.4 L Baso % (Auto) 0.7 Neut # (Auto) 8500 H Lymph # (Auto) 2100 [place] # (Auto) 700 Eos # (Auto) 200 Baso # (Auto) 100 PT 13.3 H INR 1.2 D-Dimer 2209 H Sodium 139 139 Potassium 4.2 3.9 Chloride 103 106 Carbon Dioxide 21 L 22 BUN 21 H 20 Creatinine 1.12 0.95 Estimated GFR > 60 > 60 BUN/Creatinine Ratio 18.8 21.1 Glucose 121 H 98 Lactate 1.6 Calcium 9.1 8.8 Magnesium 2.1 Total Bilirubin 1.1 1.3 AST 36 32 ALT 34 30 Alkaline Phosphatase 88 73 Troponin I 0.022 NT-Pro-B Natriuret Pep 9530 H Total Protein 8.3 H 7.5 Albumin 4.8 4.4 Globulin 3.5 3.1 Albumin/Globulin Ratio 1.4 1.4 Triglycerides 130 Cholesterol 149 LDL Cholesterol, Calc 83 HDL Cholesterol 40 PFSH Social History household members: spouse Smoking Status: Former smoker Discharge Plan Discharge Plan Patient Disposition: Home Provider Discharge Comment: Stable for discharge, he declines staying. He will FU with [facility] cardiology. Discharge orders & Medications Prescriptions: New metoprolol succinate 25 mg capsule,sprinkle,ER 24hr 25 mg PO DAILY Qty: 30 2RF lisinopril 5 mg tablet 5 mg PO DAILY Qty: 30 2RF spironolactone 25 mg tablet 25 mg PO DAILY Qty: 30 1RF aspirin 81 mg capsule 81 mg PO DAILY Qty: 30 1RF atorvastatin 40 mg tablet 40 mg PO BEDTIME Qty: 30 1RF Medication counseling provided by Pharmacist: No Follow up/Referrals: Josh Russell MD [Primary Care Provider, Medical] Discharge Health Status Multidrug resistant organism: No MDRO Diet/Activity/Treatments Diet: Low-sodium Visit Report/Discharge Packet Instructions: DI for Heart Failure Stand Alone Forms: Patient Portal/API, Influenza Vaccine Info, Notice of Privacy Practices Discharge Data Primary Care Provider: Josh Russell Quality VTE Deep Vein Thrombosis/Pulmonary Embolism Present on Admission: No
--- NOTE | 2025-11-14 11:49 | OT.IPNOTE ---
Pt being discharged. Discharge OT eval orders.
[2025-11-14 12:00] VITALS: BP 121/78; PULSE 104; RESP 20; O2SAT 96
== END 2025-11-14 12:14 | disposition home or self-care (01) | DRG 293 ==
LOC: ED 11-14 01:14 → AC 11-14 01:17
PROVIDERS: Admitting Provider Internal Medicine; Emergency Provider Emergency Medicine; PCP Student in an Organized Health Care Education/Training Program; Referring Provider Emergency Medicine; Visit Provider Internal Medicine
DX: I50.31 Acute diastolic (congestive) heart failure (principal); R05.9 Cough, unspecified; R00.0 Tachycardia, unspecified; I45.10 Unspecified right bundle-branch block; I34.0 Nonrheumatic mitral (valve) insufficiency; Z87.891 Personal history of nicotine dependence
CPT/HCPCS: 36415; 71045; 71275; 80053; 80061; 83605; 83735; 83880; 84484; 85025; 85379; 85610; 93005; 93306; 96374; 96376; 97161; 99284; 99285; J1938; Q9967